=== PATIENT | male | born 1960 | race Caucasian/White ===

== ENCOUNTER 2018-02-05 13:26 | Emergency (ER) | payer BC ==
--- NOTE | 2018-02-05 13:55 | EDM.PDOC ---
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 Left Wrist Pain Score (Numeric/FACES): 4 - Related Data Allergies Allergy/AdvReac Type Severity Reaction Status Date / Time No Known Allergies Allergy Verified 02/05/18 13:50 Home Meds: Home Meds Omeprazole [priLOSEC OTC] 1 tab PO BID 02/05/18 [History] Past Medical History Gastrointestinal History: Reports: GERD Social & Family History - Tobacco Use Smoking Status *Q: Never Smoker Review of Systems - Review of Systems Review Of Systems: See Below Musculoskeletal: Reports: Joint Pain (Left wrist pain) ED EXAM, GENERAL - Physical Exam Exam: See Below Free Text/Narrative:: Examination of left wrist I don't appreciate any erythema there is no edema there is no obvious deformity he has full range of motion of all digits as well as L1 shoulder radial pulse is +2 sensation appears to be intact there is no specific point tenderness to palpation Exam Limited By: No Limitations General Appearance: Alert, WD/WN, No Apparent Distress Course - Vital Signs Last Recorded V/S: Last Vital Signs Temp 98.3 F 02/05/18 13:48 Pulse 63 02/05/18 13:48 Resp 15 02/05/18 13:48 BP 124/79 02/05/18 13:48 Pulse Ox 96 02/05/18 13:48 - Orders/Labs/Meds Orders: Active Orders 24 hr Category Date Time Status Wrist Comp Min 3V Lt [CR] Stat Exams 02/05/18 13:51 Taken Departure - Departure Time of Disposition: 14:26 Disposition: Home, Self-Care 01 Condition: Good Clinical Impression: Left wrist sprain Qualifiers: Encounter type: initial encounter Qualified Code(s): S63.502A - Unspecified sprain of left wrist, initial encounter - Discharge Information Referrals: Lewis Wagner MD [Primary Care Provider] - Forms: ED Department Discharge Additional Instructions: Use ibuprofen as needed for pain control, continue to use wrist splint as needed for comfort , Please followup with your primary care provider in 3-5 days if not better, please call return to the emergency department with worsening of symptoms. - My Orders Last 24 Hours: My Active Orders 02/05/18 13:51 Wrist Comp Min 3V Lt [CR] Stat - Assessment/Plan Last 24 Hours: My Active Orders 02/05/18 13:51 Wrist Comp Min 3V Lt [CR] Stat Plan: Assessment Acuity = acute Site and laterality = left wrist sprain Etiology = secondary to trauma with a piece of machinery Manifestations = none Location of injury = Home Lab values = left wrist x-ray I did review films myself I cannot appreciate any acute process, the official read from radiology is pending Plan Recommend symptomatic care he was placed in a brace for comfort, nonsteroidal anti-inflammatories as needed, follow up with primary care 3-5 days if no improvement This note was dictated using [employer] voice recognition software please call with any questions on syntax or joana.
--- NOTE | 2018-02-07 09:11 | CR ---
Wrist Comp Min 3V Lt INDICATION: Twisting injury, pain FINDINGS: Negative left wrist.
== END 2018-02-05 14:33 | disposition home or self-care (01) ==
LOC: JP.ED 13:26
DX: S63.502A Unspecified sprain of left wrist, initial encounter (principal); K21.9 Gastro-esophageal reflux disease without esophagitis; X50.0XXA Overexertion from strenuous movement or load, initial encounter
CPT/HCPCS: 73110-26-LT; 73110-LT; 99284